=== PATIENT | female | born 2000 | race American Indian/Alaskan Native ===

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

== ENCOUNTER 2018-02-27 15:20 | Emergency (ER) | payer SELFPAY ==
[2018-02-27 16:33] LABS: Bilirubin,Urine NEG (Negative); Blood,Urine NEG (Negative); Color,Urine Yellow (Yellow); Mucus,Urine 2+ /HPF; Protein,Urine <15 mg/dL mg/dL (Negative)
[2018-02-27 16:37] LABS: HCG Qualitative,Urine Negative (Negative)
[2018-02-27] MEDS ORDERED: MOTRIN PO ONE (19:43)
--- NOTE | 2018-02-27 19:46 | Emergency Department Report ---
- General Chief Complaint: Upper Respiratory Infection Stated Complaint: HEADACHE,FEVER,WEAKNESS Time Seen by Provider: 02/27/18 19:40 Source: patient Mode of arrival: Ambulatory Limitations: No Limitations - History of Present Illness Initial Comments: 16-year-old Afro[place] female comes in complaining of sore throat and nausea 3 days. Patient admits to runny nose and nasal congestion and sneezing. Patient reports she is taking [id number] ibuprofen has not taken anything for pain. Patient has past medical history Asthma currently takes no medications on a daily basis and has no known drug allergies. She appears in record to have had asthma in last attack 2012. MD Complaint: sore throat, rhinorrhea, nasal congestion -: days(s) (3) Severity: mild - Related Data Home Medications Medication Instructions Recorded Confirmed Last Taken Ferrous Sulfate 1 tab PO DAILY 12/15/13 12/15/13 Unknown Previous Rx's Medication Instructions Recorded Last Taken Type Amoxicillin/K Clav Tab [Augmentin 1 tab PO BID #14 tablet 10/14/14 Unknown Rx 875MG] Ibuprofen [Motrin] 600 mg PO Q8H PRN #30 tablet 10/14/14 Unknown Rx traMADol [Ultram] 50 mg PO Q6HR PRN #14 tablet 10/14/14 Unknown Rx Amoxicillin 500 mg PO BID #20 capsule 07/14/17 Unknown Rx Omeprazole Magnesium [PriLOSEC Otc] 20 mg PO QDAY #14 tablet. 07/18/17 Unknown Rx traMADol [Ultram 50 MG tab] 50 mg PO Q6HR PRN #15 tablet 07/18/17 Unknown Rx Allergies Allergy/AdvReac Type Severity Reaction Status Date / Time No Known Allergies Allergy Verified 07/13/17 21:56 ED Review of Systems ROS: Stated complaint: HEADACHE,FEVER,WEAKNESS Other details as noted in HPI Comment: All other systems reviewed and negative Constitutional: denies: chills, fever ENT: throat pain, congestion, other (sneezing, rhinorrhea) Respiratory: denies: cough, shortness of breath, wheezing Cardiovascular: denies: chest pain, palpitations Endocrine: no symptoms reported Gastrointestinal: nausea Genitourinary: denies: urgency, dysuria, discharge Musculoskeletal: denies: back pain, joint swelling, arthralgia Skin: denies: rash, lesions Neurological: headache ED Past Medical Hx - Past Medical History Hx Hypertension: No Hx Congestive Heart Failure: No Hx Diabetes: No Hx Deep Vein Thrombosis: No Hx Renal Disease: No Hx Sickle Cell Disease: No Hx Seizures: No Hx Asthma: Yes (last attack- 2012) Hx COPD: No - Surgical History Past Surgical History?: Yes - Social History Smoking Status: Never Smoker Substance Use Type: None - Medications Home Medications: Home Medications Medication Instructions Recorded Confirmed Last Taken Type Ferrous Sulfate 1 tab PO DAILY 12/15/13 12/15/13 Unknown History Amoxicillin/K Clav Tab [Augmentin 1 tab PO BID #14 tablet 10/14/14 Unknown Rx 875MG] Ibuprofen [Motrin] 600 mg PO Q8H PRN #30 tablet 10/14/14 Unknown Rx traMADol [Ultram] 50 mg PO Q6HR PRN #14 tablet 10/14/14 Unknown Rx Amoxicillin 500 mg PO BID #20 capsule 07/14/17 Unknown Rx Omeprazole Magnesium [PriLOSEC Otc] 20 mg PO QDAY #14 tablet. 07/18/17 Unknown Rx traMADol [Ultram 50 MG tab] 50 mg PO Q6HR PRN #15 tablet 07/18/17 Unknown Rx ED Physical Exam - General Limitations: No Limitations General appearance: alert, in no apparent distress - Head Head exam: Present: atraumatic, normocephalic - Eye Eye exam: Present: EOMI - ENT ENT exam: Present: mucous membranes moist, TM's normal bilaterally - Expanded ENT Exam Expanded Throat exam: Negative: tonsillar erythema, tonsillomegaly, tonsillar exudate - Neck Neck exam: Present: full ROM. Absent: tenderness, lymphadenopathy - Respiratory Respiratory exam: Present: normal lung sounds bilaterally. Absent: respiratory distress - Cardiovascular Cardiovascular Exam: Present: regular rate, normal rhythm. Absent: systolic murmur, diastolic murmur, rubs, gallop ED Course Vital Signs 02/27/18 15:34 Temperature 98.7 F Pulse Rate 84 Respiratory 16 Rate Blood Pressure 107/60 O2 Sat by Pulse 100 Oximetry ED Medical Decision Making - Medical Decision Making Patient has been evaluated by this provider fast track. Ibuprofen 600 mg given for pain management Discussed the patient she can take Claritin, Zyrtec or Yovana for seasonal allergies, she can also take Flonase for nasal congestion discussed the patient all of this is [id number]. Discussed the patient she can take Tylenol or ibuprofen for pain. Given patient information to [facility]. Critical care attestation.: If time is entered above; I have spent that time in minutes in the direct care of this critically ill patient, excluding procedure time. ED Disposition Clinical Impression: Allergic rhinitis Qualifiers: Allergic rhinitis trigger: unspecified Allergic rhinitis seasonality: unspecified Qualified Code(s): J30.9 - Allergic rhinitis, unspecified Disposition: - TO HOME OR SELFCARE Is pt being admited?: No Does the pt Need Aspirin: No Condition: Stable Instructions: Allergic Rhinitis (ED) Additional Instructions: You can take either Zyrtec's, Claritin, or Yovana for her allergic rhinitis as well as Flonase nasal spray. They're all located in the cold and seasonal allergy area of the pharmacy. He can take Tylenol or Motrin for pain. Follow- up with [facility] if her symptoms persist or gets worse. Referrals: PRIMARY CARE, [Primary Care Provider] - 3-5 Days
[2018-02-27 20:22] VITALS: BP 110/60
== END 2018-02-27 20:44 | disposition home or self-care (01) ==
LOC: ED 15:20
DX: J30.9 Allergic rhinitis, unspecified (principal); J45.909 Unspecified asthma, uncomplicated; Z79.899 Other long term (current) drug therapy
CPT/HCPCS: 81001; 81025; 99283

== ENCOUNTER 2018-03-14 19:28 | Emergency (ER) | payer SELFPAY ==
[2018-03-14 19:38] VITALS: BP 115/44
[2018-03-14 21:02] LABS: Bilirubin,Urine NEG (Negative); Blood,Urine NEG (Negative); Color,Urine Yellow (Yellow); Mucus,Urine 1+ /HPF; WBC,Urine < 1.0 /HPF (0.0-6.0)
[2018-03-14 21:06] LABS: HCG Qualitative,Urine Negative (Negative)
--- NOTE | 2018-03-15 01:36 | Emergency Department Report ---
ED Chest Pain HPI - General Chief Complaint: Chest Pain Stated Complaint: COUGH; CONGESTION Time Seen by Provider: 03/15/18 01:20 Source: patient Mode of arrival: Ambulatory Limitations: No Limitations - History of Present Illness Initial Comments: Patient 17-year-old female with a history of asthma and bronchitis presents for cough chest pain with cough with nocturnal wheezing patient didn't denies fever n patient out of albuterol inhaler for past month MD Complaint: chest pain Onset/Timin -: days(s) Pain Location: right chest Pain Radiation: none Severity: mild Severity scale (0 -10): 2 Quality: sharp Consistency: intermittent Improves With: rest Worsens With: other (cough) Other Symptoms: cough Treatments Prior to Arrival: none - Related Data Home Medications Medication Instructions Recorded Confirmed Last Taken Ferrous Sulfate 1 tab PO DAILY 12/15/13 12/15/13 Unknown Previous Rx's Medication Instructions Recorded Last Taken Type Amoxicillin/K Clav Tab [Augmentin 1 tab PO BID #14 tablet 10/14/14 Unknown Rx 875MG] Ibuprofen [Motrin] 600 mg PO Q8H PRN #30 tablet 10/14/14 Unknown Rx traMADol [Ultram] 50 mg PO Q6HR PRN #14 tablet 10/14/14 Unknown Rx Amoxicillin 500 mg PO BID #20 capsule 07/14/17 Unknown Rx Omeprazole Magnesium [PriLOSEC Otc] 20 mg PO QDAY #14 tablet.dr 07/18/17 Unknown Rx traMADol [Ultram 50 MG tab] 50 mg PO Q6HR PRN #15 tablet 07/18/17 Unknown Rx ALBUTEROL Inhaler (OR & NICU) 2 puff IH QID PRN #1 inhalation 03/15/18 Unknown Rx [ProAir HFA Inhaler] Azithromycin 250 mg PO DAILY #6 tablet 03/15/18 Unknown Rx Benzonatate [Tessalon Perle] 100 mg PO TID PRN #30 capsule 03/15/18 Unknown Rx Ibuprofen 800 mg PO TID PRN #30 tablet 03/15/18 Unknown Rx predniSONE [Deltasone] 40 mg PO QDAY 5 Days #10 tab 03/15/18 Unknown Rx Allergies Allergy/AdvReac Type Severity Reaction Status Date / Time No Known Allergies Allergy Verified 07/13/17 21:56 Heart Score - HEART Score History: Slightly suspicious EKG: Normal Age: < 45 Risk factors: No known risk factors Troponin: < normal limit HEART Score: 0 ED Review of Systems ROS: Stated complaint: COUGH; CONGESTION Other details as noted in HPI Constitutional: denies: chills, fever Eyes: denies: eye pain, eye discharge, vision change ENT: throat pain, congestion Respiratory: cough, wheezing Cardiovascular: denies: chest pain, palpitations Endocrine: no symptoms reported Gastrointestinal: denies: abdominal pain, nausea, diarrhea Genitourinary: denies: urgency, dysuria, discharge Musculoskeletal: denies: back pain, joint swelling, arthralgia Skin: denies: rash, lesions Neurological: denies: headache, weakness, paresthesias Psychiatric: denies: anxiety, depression Hematological/Lymphatic: denies: easy bleeding, easy bruising ED Past Medical Hx - Past Medical History Hx Hypertension: No Hx Congestive Heart Failure: No Hx Diabetes: No Hx Deep Vein Thrombosis: No Hx Renal Disease: No Hx Sickle Cell Disease: No Hx Seizures: No Hx Asthma: Yes (last attack- 2012) Hx COPD: No - Surgical History Past Surgical History?: No - Social History Smoking Status: Never Smoker Substance Use Type: None - Medications Home Medications: Home Medications Medication Instructions Recorded Confirmed Last Taken Type Ferrous Sulfate 1 tab PO DAILY 12/15/13 12/15/13 Unknown History Amoxicillin/K Clav Tab [Augmentin 1 tab PO BID #14 tablet 10/14/14 Unknown Rx 875MG] Ibuprofen [Motrin] 600 mg PO Q8H PRN #30 tablet 10/14/14 Unknown Rx traMADol [Ultram] 50 mg PO Q6HR PRN #14 tablet 10/14/14 Unknown Rx Amoxicillin 500 mg PO BID #20 capsule 07/14/17 Unknown Rx Omeprazole Magnesium [PriLOSEC Otc] 20 mg PO QDAY #14 tablet. 07/18/17 Unknown Rx traMADol [Ultram 50 MG tab] 50 mg PO Q6HR PRN #15 tablet 07/18/17 Unknown Rx ALBUTEROL Inhaler (OR & NICU) 2 puff IH QID PRN #1 inhalation 03/15/18 Unknown Rx [ProAir HFA Inhaler] Azithromycin 250 mg PO DAILY #6 tablet 03/15/18 Unknown Rx Benzonatate [Tessalon Perle] 100 mg PO TID PRN #30 capsule 03/15/18 Unknown Rx Ibuprofen 800 mg PO TID PRN #30 tablet 03/15/18 Unknown Rx predniSONE [Deltasone] 40 mg PO QDAY 5 Days #10 tab 03/15/18 Unknown Rx ED Physical Exam - General Limitations: No Limitations General appearance: alert, in no apparent distress - Head Head exam: Present: atraumatic, normocephalic - Eye Eye exam: Present: normal appearance - Expanded ENT Exam Expanded Ear exam: Present: auricular hematoma Throat exam: Positive: tonsillar erythema. Negative: tonsillomegaly, tonsillar exudate, R peritonsillar mass, L peritonsillar mass - Neck Neck exam: Present: normal inspection. Absent: tenderness, full ROM, lymphadenopathy, thyromegaly - Respiratory Respiratory exam: Present: normal lung sounds bilaterally, chest wall tenderness (right lateral chest wall ). Absent: respiratory distress, wheezes, stridor - Cardiovascular Cardiovascular Exam: Present: regular rate, normal rhythm. Absent: systolic murmur, diastolic murmur, rubs, gallop - GI/Abdominal GI/Abdominal exam: Present: soft, normal bowel sounds - Rectal Rectal exam: Present: deferred - Extremities Exam Extremities exam: Present: normal inspection - Back Exam Back exam: Present: normal inspection - Neurological Exam Neurological exam: Present: alert, oriented X3 - Psychiatric Psychiatric exam: Present: normal affect, normal mood - Skin Skin exam: Present: warm, dry, intact, normal color. Absent: rash ED Course Vital Signs 03/14/18 03/14/18 19:37 19:59 Temperature 98.6 F 98.6 F Pulse Rate 90 84 Respiratory 18 16 Rate Blood Pressure 115/44 115/44 O2 Sat by Pulse 100 100 Oximetry AG score - Ag Score Age > 65: (0) No Aspirin use within the Past 7 Days: (0) No 3 or more CAD Risk Factors: (0) No 2 or more Angina events in past 24 hrs: (0) No Known CAD with more than 50% Stenosis: (0) No Elevated Cardiac Markers: (0) No ST Deviation Greater than 0.5mm: (0) No AG Score: 0 ED Medical Decision Making - Medical Decision Making pt refused xray ekg: nsr NSTEMI , Ent: tms clear, nose: boggy clear post nasal drip, pharynx: moderate erythema no exudate no lesions, mild bilat maxillary sinus pain, lungs clear bilat, plan: refill albuterol, prednisone, tessalone, ibuprofen, zpack , pt will followup with pcp in 2-3 days, pt verbalized agreement and understanding of same. Critical care attestation.: If time is entered above; I have spent that time in minutes in the direct care of this critically ill patient, excluding procedure time. ED Disposition Clinical Impression: Bronchitis URI (upper respiratory infection) Qualifiers: URI type: unspecified viral URI Qualified Code(s): J06.9 - Acute upper respiratory infection, unspecified Disposition: TO HOME OR SELFCARE Is pt being admited?: No Does the pt Need Aspirin: No Condition: Good Instructions: Chronic Bronchitis (ED) Prescriptions: ALBUTEROL Inhaler (OR & NICU) [ProAir HFA Inhaler] 2 puff IH QID PRN #1 inhalation PRN Reason: Shortness Of Breath Azithromycin 250 mg PO DAILY #6 tablet Benzonatate [Tessalon Perle] 100 mg PO TID PRN #30 capsule PRN Reason: Cough Ibuprofen 800 mg PO TID PRN #30 tablet PRN Reason: pain predniSONE [Deltasone] 40 mg PO QDAY 5 Days #10 tab Referrals: [facility] [Outside] - 3-5 Days Forms: Work/School Release Form(ED)
== END 2018-03-15 01:56 | disposition home or self-care (01) ==
LOC: ED 19:28
DX: J06.9 Acute upper respiratory infection, unspecified (principal); J40 Bronchitis, not specified as acute or chronic; J45.909 Unspecified asthma, uncomplicated
CPT/HCPCS: 81001; 81025; 93005; 93010; 99283

== ENCOUNTER 2018-10-29 21:41 | Emergency (ER) | payer SELFPAY ==
--- NOTE | 2018-10-29 22:08 | Emergency Department Report ---
Blank Doc - Documentation Documentation: 18 y old female presents to ed with 1 day of sore throat, cough, chest pain and light headedness pmh:none states bennett x 2 weeks labs,ua,upt,xray ACC Eval
[2018-10-29 22:12] VITALS: BP 110/76
[2018-10-29 22:42] LABS: Hematocrit 27.8 % (30.3-42.9); Hemoglobin 9.4 gm/dl (10.1-14.3); Mean Corpuscular HGB Conc 34 % (30-34); Mean Corpuscular Volume 75 fl (79-97); Platelet Count 296 K/mm3 (140-440); Red Blood Count 3.72 M/mm3 (3.65-5.03); Red Cell Distribution Width 16.2 % (13.2-15.2)
[2018-10-29 22:54] LABS: BUN/Creatinine Ratio 14; Blood Urea Nitrogen 7 mg/dL (7-17); Calcium 9.2 mg/dL (8.4-10.2); Hemolysis Index 4
[2018-10-29 23:16] LABS: Total Cells Counted 100
[2018-10-29 23:17] LABS: Ovalocytes 1+
[2018-10-29 23:22] LABS: Hypochromasia 2+; Platelet Estimate Consistent w Auto
--- NOTE | 2018-10-30 00:03 | XRay Report ---
PROCEDURE: XR CHEST ROUTINE 2V TECHNIQUE: PA and lateral chest radiographs were obtained. HISTORY: pain with cough COMPARISONS: July 17, 2017. FINDINGS: Heart: Normal. Mediastinum/Vessels: Normal. Lungs/Pleural space: Normal. Bony thorax: No acute osseous abnormality. IMPRESSION: There is no evidence of an acute cardiopulmonary process. This document is electronically signed by Nivia Ricardo DO., Oct 30 2018 12:00:47 AM ET
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
== END 2018-10-30 04:41 | disposition home or self-care (01) ==
LOC: ED 21:41
DX: K14.0 Glossitis (principal); J02.9 Acute pharyngitis, unspecified; D64.9 Anemia, unspecified
CPT/HCPCS: 36415; 71046; 80048; 84703; 85007; 85025; 87116; 87430

== ENCOUNTER 2018-11-09 04:57 | Emergency (ER) | payer SELFPAY ==
[2018-11-09 05:18] VITALS: BP 112/65
[2018-11-09 05:47] LABS: Bilirubin,Urine NEG (Negative); Blood,Urine NEG (Negative); Color,Urine Yellow (Yellow); Mucus,Urine 3+ /HPF; Protein,Urine <15 mg/dL mg/dL (Negative); Urobilinogen,Urine < 2.0 mg/dL (<2.0)
[2018-11-09 05:54] LABS: HCG Qualitative,Urine Negative (Negative)
[2018-11-09] MEDS ORDERED: XYLOCAINE 1% MPF 5 mL INFILTRATI ONE (05:56)
[2018-11-09] MEDS ORDERED: ZITHROMAX PO ONE (05:56)
[2018-11-09] MEDS ORDERED: ROCEPHIN IM ONE (05:56)
--- NOTE | 2018-11-09 06:25 | Emergency Department Report ---
ED General Adult HPI - General Chief complaint: Urogenital-Female Stated complaint: STD CHECK Time Seen by Provider: 11/09/18 05:40 Source: patient Mode of arrival: Ambulatory Limitations: No Limitations - History of Present Illness Initial comments: Patient is a A0 18 hours old, female who presents to the ED with complaint of persistent malodorous greenish brown vaginal discharge for the last 3 days after having unprotected sexual intercourse. Patient states that she would like to be treated for sexually transmitted diseases because she suspects he may have an infected. Patient denies dizziness, fever, chills, nausea, vomiting, dysuria, urinary frequency and urgency, low back pain or abdominal pain and vaginal bleeding. MD Complaint: vaginal discharge -: Sudden, days(s) (3) Location: genitals Radiation: non-radiation Severity scale (0 -10): 1 Quality: burning, aching, dull Consistency: constant Improves with: none Worsens with: none Associated Symptoms: denies other symptoms. denies: confusion, chest pain, cough, diaphoresis, headaches, loss of appetite Treatments Prior to Arrival: none - Related Data Home Medications Medication Instructions Recorded Confirmed Last Taken Ferrous Sulfate 1 tab PO DAILY 12/15/13 12/15/13 Unknown Previous Rx's Medication Instructions Recorded Last Taken Type Amoxicillin/K Clav Tab [Augmentin 1 tab PO BID #14 tablet 10/14/14 Unknown Rx 875MG] Ibuprofen [Motrin] 600 mg PO Q8H PRN #30 tablet 10/14/14 Unknown Rx traMADol [Ultram] 50 mg PO Q6HR PRN #14 tablet 10/14/14 Unknown Rx Amoxicillin 500 mg PO BID #20 capsule 07/14/17 Unknown Rx Omeprazole Magnesium [PriLOSEC Otc] 20 mg PO QDAY #14 tablet. 07/18/17 Unknown Rx traMADol [Ultram 50 MG tab] 50 mg PO Q6HR PRN #15 tablet 07/18/17 Unknown Rx ALBUTEROL Inhaler (OR & NICU) 2 puff IH QID PRN #1 inhalation 03/15/18 Unknown Rx [ProAir HFA Inhaler] Azithromycin 250 mg PO DAILY #6 tablet 03/15/18 Unknown Rx Benzonatate [Tessalon Perle] 100 mg PO TID PRN #30 capsule 03/15/18 Unknown Rx Ibuprofen [Ibuprofen 800] 800 mg PO TID PRN #30 tablet 03/15/18 Unknown Rx predniSONE [Deltasone] 40 mg PO QDAY 5 Days #10 tab 03/15/18 Unknown Rx Chlorhexidine Mouthwash [Peridex] 15 ml MM BID #473 bottle 10/30/18 Unknown Rx Fluconazole [Diflucan TAB] 150 mg PO ONCE #1 tablet 11/09/18 Unknown Rx metroNIDAZOLE [Flagyl] 500 mg PO Q12HR #20 tab 11/09/18 Unknown Rx Allergies Allergy/AdvReac Type Severity Reaction Status Date / Time No Known Allergies Allergy Verified 07/13/17 21:56 ED Review of Systems ROS: Stated complaint: STD CHECK Other details as noted in HPI Comment: All other systems reviewed and negative Constitutional: no symptoms reported, see HPI. denies: diaphoresis, malaise Eyes: as per HPI. denies: eye pain, eye discharge ENT: as per HPI. denies: ear pain, throat pain, dental pain, hearing loss, epistaxis Respiratory: no symptoms reported, see HPI. denies: cough, orthopnea, shortness of breath, SOB with exertion, SOB at rest Cardiovascular: as per HPI. denies: chest pain, palpitations, dyspnea on exertion, orthopnea, edema, syncope, paroxysmal nocturnal dyspnea Endocrine: no symptoms reported, see HPI. denies: excessive sweating, flushing, increased hunger, increased thirst, increased urine Gastrointestinal: as per HPI. denies: abdominal pain, nausea, vomiting, diarrhea, constipation Genitourinary: as per HPI, discharge. denies: urgency, dysuria, frequency, abnormal menses, dyspareunia Musculoskeletal: as per HPI. denies: back pain, joint swelling, arthralgia Skin: as per HPI. denies: rash, lesions, change in color, change in hair/nails Neurological: as per HPI. denies: numbness, confusion Psychiatric: as per HPI Hematological/Lymphatic: as per HPI ED Past Medical Hx - Past Medical History Previous Medical History?: Yes Hx Hypertension: No Hx Congestive Heart Failure: No Hx Diabetes: No Hx Deep Vein Thrombosis: No Hx Renal Disease: No Hx Sickle Cell Disease: No Hx Seizures: No Hx Asthma: Yes (last attack- 2012) Hx COPD: No Additional medical history: Irregular heart rate as a child - Surgical History Past Surgical History?: Yes Additional Surgical History: "heart sx at 4/5 yrs old" - Social History Smoking Status: Never Smoker - Medications Home Medications: Home Medications Medication Instructions Recorded Confirmed Last Taken Type Ferrous Sulfate 1 tab PO DAILY 12/15/13 12/15/13 Unknown History Amoxicillin/K Clav Tab [Augmentin 1 tab PO BID #14 tablet 10/14/14 Unknown Rx 875MG] Ibuprofen [Motrin] 600 mg PO Q8H PRN #30 tablet 10/14/14 Unknown Rx traMADol [Ultram] 50 mg PO Q6HR PRN #14 tablet 10/14/14 Unknown Rx Amoxicillin 500 mg PO BID #20 capsule 07/14/17 Unknown Rx Omeprazole Magnesium [PriLOSEC Otc] 20 mg PO QDAY #14 tablet.dr 07/18/17 Unknown Rx traMADol [Ultram 50 MG tab] 50 mg PO Q6HR PRN #15 tablet 07/18/17 Unknown Rx ALBUTEROL Inhaler (OR & NICU) 2 puff IH QID PRN #1 inhalation 03/15/18 Unknown Rx [ProAir HFA Inhaler] Azithromycin 250 mg PO DAILY #6 tablet 03/15/18 Unknown Rx Benzonatate [Tessalon Perle] 100 mg PO TID PRN #30 capsule 03/15/18 Unknown Rx Ibuprofen [Ibuprofen 800] 800 mg PO TID PRN #30 tablet 03/15/18 Unknown Rx predniSONE [Deltasone] 40 mg PO QDAY 5 Days #10 tab 03/15/18 Unknown Rx Chlorhexidine Mouthwash [Peridex] 15 ml MM BID #473 bottle 10/30/18 Unknown Rx Fluconazole [Diflucan TAB] 150 mg PO ONCE #1 tablet 11/09/18 Unknown Rx metroNIDAZOLE [Flagyl] 500 mg PO Q12HR #20 tab 11/09/18 Unknown Rx ED Physical Exam - General Limitations: No Limitations General appearance: alert, in no apparent distress - Head Head exam: Present: atraumatic, normocephalic, normal inspection - Eye Eye exam: Present: normal appearance, PERRL, EOMI Pupils: Present: normal accommodation - ENT ENT exam: Present: normal exam, normal orophraynx, mucous membranes moist, TM's normal bilaterally, normal external ear exam - Neck Neck exam: Present: normal inspection - Respiratory Respiratory exam: Present: normal lung sounds bilaterally. Absent: respiratory distress, wheezes, chest wall tenderness, accessory muscle use, decreased breath sounds - Cardiovascular Cardiovascular Exam: Present: regular rate, normal rhythm, normal heart sounds - GI/Abdominal GI/Abdominal exam: Present: soft, normal bowel sounds. Absent: tenderness, gua rding, hyperactive bowel sounds, hypoactive bowel sounds - Rectal Rectal exam: Present: deferred - External exam: Present: other (patient declined pelvic exam) - Extremities Exam Extremities exam: Present: normal inspection, full ROM, normal capillary refill - Back Exam Back exam: Present: normal inspection. Absent: CVA tenderness (R), CVA tenderness (L), muscle spasm, vertebral tenderness - Neurological Exam Neurological exam: Present: alert, oriented X3, CN II-XII intact, normal gait, reflexes normal - Psychiatric Psychiatric exam: Present: normal affect - Skin Skin exam: Present: warm, dry, intact, normal color ED Course Vital Signs 11/09/18 11/09/18 05:15 05:24 Temperature 97.9 F 97.9 F Pulse Rate 77 69 Respiratory 18 18 Rate Blood Pressure 112/65 112/65 O2 Sat by Pulse 99 100 Oximetry - Reevaluation(s) Reevaluation #1: 11/09/18 06:25 Patient is hemodynamically stable. Urinalysis was ordered to include gonorrhea and chlamydia tests. Patient treated empirically for gonorrhea and Chlamydia in the ED and discharged home on Flagyl for bacterial vaginosis. Patient advised to follow-up at the health department for further evaluation and tests. ED Medical Decision Making - Medical Decision Making Patient is hemodynamically stable. Urinalysis was ordered to include gonorrhea and chlamydia tests. Patient treated empirically for gonorrhea and Chlamydia in the ED and discharged home on Flagyl for bacterial vaginosis. Patient advised to follow-up at the health department for further evaluation and tests. - Differential Diagnosis STD, Bacterial vaginosis, Trichomonas, GC/CHlamydia Critical care attestation.: If time is entered above; I have spent that time in minutes in the direct care of this critically ill patient, excluding procedure time. ED Disposition Clinical Impression: STD (sexually transmitted disease), Bacterial vaginosis Disposition: TO HOME OR SELFCARE Is pt being admited?: No Does the pt Need Aspirin: No Condition: Stable Instructions: Bacterial Vaginosis (ED), Sexually Transmitted Diseases (ED), Safe Sex (ED), Trichomoniasis (ED) Additional Instructions: Follow-up at [facility] for further evaluation and tests. Return to the ED immediately if symptoms get worse. Prescriptions: Fluconazole [Diflucan TAB] 150 mg PO ONCE #1 tablet metroNIDAZOLE [Flagyl] 500 mg PO Q12HR #20 tab Referrals: DEE MONREAL MD [Primary Care Provider] - 3-5 Days Forms: STI Treatment and Prevention Time of Disposition: 06:29 Print Language: THAI
[2018-11-09] MEDS ORDERED: ZOFRAN ODT PO ONE (06:54)
[2018-11-09] MEDS ORDERED: ZOFRAN ODT ONE (06:57)
== END 2018-11-09 07:12 | disposition home or self-care (01) ==
LOC: ED 04:57
DX: A64 Unspecified sexually transmitted disease (principal); N76.0 Acute vaginitis; B96.89 Other specified bacterial agents as the cause of diseases classified elsewhere; J45.909 Unspecified asthma, uncomplicated
CPT/HCPCS: 81001; 81025; 87591; 96372; 99283; J0696; Q0162

== ENCOUNTER 2018-12-23 19:37 | Emergency (ER) | payer SELFPAY ==
[2018-12-23] MEDS ORDERED: BOOSTRIX IM ONE (20:21)
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
[2018-12-23 20:23] VITALS: BP 117/67
== END 2018-12-23 20:35 | disposition home or self-care (01) ==
LOC: ED 19:37
DX: S61.452A Open bite of left hand, initial encounter (principal); W50.3XXA Accidental bite by another person, initial encounter; Y93.89 Activity, other specified; Y92.89 Other specified places as the place of occurrence of the external cause; Y99.8 Other external cause status
CPT/HCPCS: 90471; 90715

== ENCOUNTER 2019-03-05 16:58 | Emergency (ER) | payer SELFPAY ==
[2019-03-05 17:18] VITALS: BP 101/45
--- NOTE | 2019-03-05 17:18 | Event Note ---
ED Screening Note Date of service: 03/05/19 Time: 17:15 ED Screening Note: This is a 18 y.o. F. that presents to the ER with pelvic pain and vaginal discharge for 3 weeks. LMP 01/26/2019 A0 This initial assessment/diagnostic orders/clinical plan/treatment(s) is/are subject to change based on patients health status, clinical progression and re- assessment by fellow clinical providers in the ED. Further treatment and workup at subsequent clinical providers discretion. Patient/guardian urged not to elope from the ED as their condition may be serious if not clinically assessed and managed. Initial orders include: Pelvic exam
[2019-03-05 17:43] LABS: HCG Qualitative,Urine Negative (Negative)
--- NOTE | 2019-03-05 17:46 | Emergency Department Report ---
ED Female HPI - General Chief complaint: Urogenital-Female Stated complaint: ABD PAIN/PELVIC PAIN Time Seen by Provider: 03/05/19 17:14 Source: patient Mode of arrival: Ambulatory Limitations: No Limitations - History of Present Illness Initial comments: Patient is a 18-year-old female who presents to emergency room with complaints of pelvic pain that began a week ago. She has associated vaginal itching, white/green vaginal discharge, lesions on the vagina. She denies any nausea, vomiting, diarrhea, fever, dysuria, abdominal pain. She states that she was sexually active a month ago and did not use protection. The patient states that she perform douching a week ago which she states felt like it made her symptoms worse. She states her last menstrual cycle was January 29. - Related Data Home Medications Medication Instructions Recorded Confirmed Last Taken Ferrous Sulfate 1 tab PO DAILY 12/15/13 12/15/13 Unknown Previous Rx's Medication Instructions Recorded Last Taken Type Amoxicillin/K Clav Tab [Augmentin 1 tab PO BID #14 tablet 10/14/14 Unknown Rx 875MG] Ibuprofen [Motrin] 600 mg PO Q8H PRN #30 tablet 10/14/14 Unknown Rx traMADol [Ultram] 50 mg PO Q6HR PRN #14 tablet 10/14/14 Unknown Rx Amoxicillin 500 mg PO BID #20 capsule 07/14/17 Unknown Rx Omeprazole Magnesium [PriLOSEC Otc] 20 mg PO QDAY #14 tablet.dr 07/18/17 Unknown Rx traMADol [Ultram 50 MG tab] 50 mg PO Q6HR PRN #15 tablet 07/18/17 Unknown Rx ALBUTEROL Inhaler (OR & NICU) 2 puff IH QID PRN #1 inhalation 03/15/18 Unknown Rx [ProAir HFA Inhaler] Azithromycin 250 mg PO DAILY #6 tablet 03/15/18 Unknown Rx Benzonatate [Tessalon Perle] 100 mg PO TID PRN #30 capsule 03/15/18 Unknown Rx Ibuprofen [Ibuprofen 800] 800 mg PO TID PRN #30 tablet 03/15/18 Unknown Rx predniSONE [Deltasone] 40 mg PO QDAY 5 Days #10 tab 03/15/18 Unknown Rx Chlorhexidine Mouthwash [Peridex] 15 ml MM BID #473 bottle 10/30/18 Unknown Rx Fluconazole [Diflucan TAB] 150 mg PO ONCE #1 tablet 11/09/18 Unknown Rx metroNIDAZOLE [Flagyl] 500 mg PO Q12HR #20 tab 11/09/18 Unknown Rx Amoxicillin [Trimox CAP] 500 mg PO BID #20 capsule 12/23/18 Unknown Rx metroNIDAZOLE [Flagyl] 500 mg PO BID 7 Days #14 tab 03/05/19 Unknown Rx Allergies Allergy/AdvReac Type Severity Reaction Status Date / Time No Known Allergies Allergy Verified 07/13/17 21:56 ED Review of Systems ROS: Stated complaint: ABD PAIN/PELVIC PAIN Other details as noted in HPI Comment: All other systems reviewed and negative ED Past Medical Hx - Past Medical History Previous Medical History?: Yes Hx Hypertension: No Hx Congestive Heart Failure: No Hx Diabetes: No Hx Deep Vein Thrombosis: No Hx Renal Disease: No Hx Sickle Cell Disease: No Hx Seizures: No Hx Asthma: Yes (last attack- 2012) Hx COPD: No Additional medical history: Irregular heart rate as a child - Surgical History Past Surgical History?: Yes Additional Surgical History: "heart sx at 4/5 yrs old" - Social History Smoking Status: Never Smoker Substance Use Type: None - Medications Home Medications: Home Medications Medication Instructions Recorded Confirmed Last Taken Type Ferrous Sulfate 1 tab PO DAILY 12/15/13 12/15/13 Unknown History Amoxicillin/K Clav Tab [Augmentin 1 tab PO BID #14 tablet 10/14/14 Unknown Rx 875MG] Ibuprofen [Motrin] 600 mg PO Q8H PRN #30 tablet 10/14/14 Unknown Rx traMADol [Ultram] 50 mg PO Q6HR PRN #14 tablet 10/14/14 Unknown Rx Amoxicillin 500 mg PO BID #20 capsule 07/14/17 Unknown Rx Omeprazole Magnesium [PriLOSEC Otc] 20 mg PO QDAY #14 tablet. 07/18/17 Unknown Rx traMADol [Ultram 50 MG tab] 50 mg PO Q6HR PRN #15 tablet 07/18/17 Unknown Rx ALBUTEROL Inhaler (OR & NICU) 2 puff IH QID PRN #1 inhalation 03/15/18 Unknown Rx [ProAir HFA Inhaler] Azithromycin 250 mg PO DAILY #6 tablet 03/15/18 Unknown Rx Benzonatate [Tessalon Perle] 100 mg PO TID PRN #30 capsule 03/15/18 Unknown Rx Ibuprofen [Ibuprofen 800] 800 mg PO TID PRN #30 tablet 03/15/18 Unknown Rx predniSONE [Deltasone] 40 mg PO QDAY 5 Days #10 tab 03/15/18 Unknown Rx Chlorhexidine Mouthwash [Peridex] 15 ml MM BID #473 bottle 10/30/18 Unknown Rx Fluconazole [Diflucan TAB] 150 mg PO ONCE #1 tablet 11/09/18 Unknown Rx metroNIDAZOLE [Flagyl] 500 mg PO Q12HR #20 tab 11/09/18 Unknown Rx Amoxicillin [Trimox CAP] 500 mg PO BID #20 capsule 12/23/18 Unknown Rx metroNIDAZOLE [Flagyl] 500 mg PO BID 7 Days #14 tab 03/05/19 Unknown Rx ED Physical Exam - General Limitations: No Limitations General appearance: alert, in no apparent distress - Head Head exam: Present: atraumatic, normocephalic - Eye Eye exam: Present: normal appearance - ENT ENT exam: Present: mucous membranes moist - Respiratory Respiratory exam: Present: normal lung sounds bilaterally. Absent: respiratory distress, wheezes, rales, rhonchi, stridor, chest wall tenderness, accessory muscle use, decreased breath sounds, prolonged expiratory - Cardiovascular Cardiovascular Exam: Present: regular rate, normal rhythm, normal heart sounds. Absent: systolic murmur, diastolic murmur, rubs, gallop - GI/Abdominal GI/Abdominal exam: Present: soft, normal bowel sounds. Absent: distended, tenderness, guarding, rebound, rigid - External exam: Present: normal external exam, other (no visualized lesions or blisters). Absent: erythema, swelling, lesions, lacerations, ecchymosis, bleeding Speculum exam: Present: vaginal discharge (clear/white), cervical discharge (clear/white), other (shrimp trawler: reid rivas RN). Absent: erythema, vaginal bleeding, foreign body, tissue, laceration Bi-manual exam: Present: normal bi-manual exam. Absent: cervical motion tendernes, adnexal tenderness, adnexal mass - Neurological Exam Neurological exam: Present: alert, oriented X3 - Psychiatric Psychiatric exam: Present: normal affect, normal mood - Skin Skin exam: Present: warm, dry, intact ED Course Vital Signs 03/05/19 17:15 Temperature 98.3 F Pulse Rate 78 Respiratory 18 Rate Blood Pressure 101/45 [Left] O2 Sat by Pulse 100 Oximetry ED Medical Decision Making - Lab Data Lab Results 03/05/19 Range/Units 17:36 Urine Color Yellow (Yellow) Urine Turbidity Slightly-cloudy (Clear) Urine pH 7.0 (5.0-7.0) Ur Specific [place] 1.025 (1.003-1.030) Urine Protein <15 mg/dl (Negative) mg/dL Urine Glucose (UA) Neg (Negative) mg/dL Urine Ketones Neg (Negative) mg/dL Urine Blood Neg (Negative) Urine Nitrite Neg (Negative) Ur Reducing Substances Not Reportable Urine Bilirubin Neg (Negative) Urine Ictotest Not Reportable Urine Urobilinogen < 2.0 (<2.0) mg/dL Ur Leukocyte Esterase Lg (Negative) Urine WBC (Auto) 2.0 (0.0-6.0) /HPF Urine RBC (Auto) 3.0 (0.0-6.0) /HPF U Epithel Cells (Auto) 5.0 (0-13.0) /HPF Urine Bacteria (Auto) 1+ (Negative) /HPF Urine Mucus Few /HPF Urine HCG, Qual Negative (Negative) - Medical Decision Making Patient is a 18-year-old female who presents to emergency room with complaints of pelvic pain that began a week ago. She has associated vaginal itching, white/green vaginal discharge, lesions on the vagina. She denies any nausea, vomiting, diarrhea, fever, dysuria, abdominal pain. She states that she was sexually active a month ago and did not use protection. The patient states that she perform douching a week ago which she states felt like it made her symptoms worse. She states her last menstrual cycle was January 29. on exam: clear/white vaginal discharge, no CMT, no adnexal tenderness or masses, no abd TTP. pt is afebrile, no signs of PID on exam. urine preg is negative. UA without evidence of UTI. Wet prep shows polymorphonuclear cells and evidence of BV. Lesion prophylactically treated for gonorrhea and chlamydia. Gonorrhea chlamydia swab sent. Patient given prescription for Flagyl for BV. discussed with pt to please take medication as prescribed. do not drink alcohol while taking medication. Advised patient to please go to medical records in one week for results of tests. Please have partner tested and treated as well. Please be seen by the health department or an LOOP TACKER for further STD testing. Return to the emergency room for any new or worsening symptoms. - Differential Diagnosis STD, BV, yeast, vaginitis, PID Critical care attestation.: If time is entered above; I have spent that time in minutes in the direct care of this critically ill patient, excluding procedure time. ED Disposition Clinical Impression: Bacterial vaginosis, Vaginal discharge, Vaginal irritation Disposition: TO HOME OR SELFCARE Is pt being admited?: No Does the pt Need Aspirin: No Condition: Stable Instructions: Bacterial Vaginosis (ED), Sexually Transmitted Diseases (ED), Safe Sex (ED) Additional Instructions: please take medication as prescribed. do not drink alcohol while taking medication. Advised patient to please go to medical records in one week for results of tests. Please have partner tested and treated as well. Please be seen by the health department or an LOOP TACKER for further STD testing. Return to the emergency room for any new or worsening symptoms. Prescriptions: metroNIDAZOLE [Flagyl] 500 mg PO BID 7 Days #14 tab Referrals: [facility] [Outside] - 2-3 Days LISA SUH MD [Staff Physician] - 2-3 Days [facility] [Provider Group] - 2-3 Days Forms: STI Treatment and Prevention Time of Disposition: 19:21 Print Language: TURKISH
[2019-03-05 17:47] LABS: Bacteria,Urine 1+ /HPF (Negative); Bilirubin,Urine NEG (Negative); Blood,Urine NEG (Negative); Color,Urine Yellow (Yellow); Mucus,Urine FEW /HPF; Protein,Urine <15 mg/dL mg/dL (Negative); Urobilinogen,Urine < 2.0 mg/dL (<2.0)
[2019-03-05] MEDS ORDERED: LIDOCAINE-MPF (1%) 10 MG/1 ML VIAL 5 ML INFILTRATI ONE (19:16)
[2019-03-05] MEDS ORDERED: AZITHROMYCIN 1 GM ORAL PWDR PACKET PO ONE (19:16)
== END 2019-03-05 19:35 | disposition home or self-care (01) ==
LOC: ED 16:58
DX: N76.0 Acute vaginitis (principal); B96.89 Other specified bacterial agents as the cause of diseases classified elsewhere; J45.909 Unspecified asthma, uncomplicated; Z79.899 Other long term (current) drug therapy
CPT/HCPCS: 81001; 81025; 87210; 87591; 96372; 99284; J0696

== ENCOUNTER 2019-10-24 20:22 | Emergency (ER) | payer MEDICAID ==
[2019-10-24] MEDS ORDERED: ACETAMINOPHEN W/CODEINE 300-30 MG TAB PO ONE (21:06)
[2019-10-24] MEDS ORDERED: AMOXICILLIN 500 MG CAP PO ONE (21:06)
--- NOTE | 2019-10-24 21:28 | Emergency Department Report ---
ED ENT HPI - General Chief complaint: Dental/Oral Stated complaint: TOOTHACHE,HEADACHE Time Seen by Provider: 10/24/19 20:46 Source: patient Mode of arrival: Ambulatory Limitations: No Limitations - History of Present Illness Initial comments: The patient is a 19-year-old female who presents to ED complaining of pain in the right side of his mouth x 3 days. Patient states the pain is alleviated initially with pain medication but comes back. Patient states that it radiates towards ear. Patient describes a as a throbbing, pressure-like sensation. Patient states otherwise well and has no other complaints. Patient has had no fevers and no chills. No chest pain, no shortness of breath. No abdominal pain. No shortness of breath or recent trauma to the face. MD complaint: tooth pain - Related Data Home Medications Medication Instructions Recorded Confirmed Last Taken Ferrous Sulfate 1 tab PO DAILY 12/15/13 12/15/13 Unknown Previous Rx's Medication Instructions Recorded Last Taken Type Amoxicillin/K Clav Tab [Augmentin 1 tab PO BID #14 tablet 10/14/14 Unknown Rx 875MG] Ibuprofen [Motrin] 600 mg PO Q8H PRN #30 tablet 10/14/14 Unknown Rx traMADoL [Ultram] 50 mg PO Q6HR PRN #14 tablet 10/14/14 Unknown Rx Amoxicillin 500 mg PO BID #20 capsule 07/14/17 Unknown Rx Omeprazole Magnesium [PriLOSEC Otc] 20 mg PO QDAY #14 tablet. 07/18/17 Unknown Rx traMADoL [Ultram 50 MG tab] 50 mg PO Q6HR PRN #15 tablet 07/18/17 Unknown Rx Albuterol INH(or & Nicu Only) 2 puff IH QID PRN #1 inhalation 03/15/18 Unknown Rx [ProAir HFA Inhaler] Azithromycin 250 mg PO DAILY #6 tablet 03/15/18 Unknown Rx Benzonatate [Tessalon Perle] 100 mg PO TID PRN #30 capsule 03/15/18 Unknown Rx Ibuprofen [Ibuprofen 800] 800 mg PO TID PRN #30 tablet 03/15/18 Unknown Rx predniSONE [Deltasone] 40 mg PO QDAY 5 Days #10 tab 03/15/18 Unknown Rx Chlorhexidine Mouthwash [Peridex] 15 ml MM BID #473 bottle 10/30/18 Unknown Rx Fluconazole (Nf) [Diflucan TAB] 150 mg PO ONCE #1 tablet 11/09/18 Unknown Rx metroNIDAZOLE [Flagyl] 500 mg PO Q12HR #20 tab 11/09/18 Unknown Rx metroNIDAZOLE [Flagyl] 500 mg PO BID 7 Days #14 tab 03/05/19 Unknown Rx Amoxicillin [Trimox CAP] 500 mg PO BID #20 capsule 10/24/19 Unknown Rx Ibuprofen [Motrin] 800 mg PO Q8HR #30 tablet 10/24/19 Unknown Rx Allergies Allergy/AdvReac Type Severity Reaction Status Date / Time No Known Allergies Allergy Verified 07/13/17 21:56 ED Dental HPI - General Chief complaint: Dental/Oral Stated complaint: TOOTHACHE,HEADACHE Time Seen by Provider: 10/24/19 20:46 Source: patient Mode of arrival: Ambulatory Limitations: No Limitations - Related Data Home Medications Medication Instructions Recorded Confirmed Last Taken Ferrous Sulfate 1 tab PO DAILY 12/15/13 12/15/13 Unknown Previous Rx's Medication Instructions Recorded Last Taken Type Amoxicillin/K Clav Tab [Augmentin 1 tab PO BID #14 tablet 10/14/14 Unknown Rx 875MG] Ibuprofen [Motrin] 600 mg PO Q8H PRN #30 tablet 10/14/14 Unknown Rx traMADoL [Ultram] 50 mg PO Q6HR PRN #14 tablet 10/14/14 Unknown Rx Amoxicillin 500 mg PO BID #20 capsule 07/14/17 Unknown Rx Omeprazole Magnesium [PriLOSEC Otc] 20 mg PO QDAY #14 tablet. 07/18/17 Unknown Rx traMADoL [Ultram 50 MG tab] 50 mg PO Q6HR PRN #15 tablet 07/18/17 Unknown Rx Albuterol INH(or & Nicu Only) 2 puff IH QID PRN #1 inhalation 03/15/18 Unknown Rx [ProAir HFA Inhaler] Azithromycin 250 mg PO DAILY #6 tablet 03/15/18 Unknown Rx Benzonatate [Tessalon Perle] 100 mg PO TID PRN #30 capsule 03/15/18 Unknown Rx Ibuprofen [Ibuprofen 800] 800 mg PO TID PRN #30 tablet 03/15/18 Unknown Rx predniSONE [Deltasone] 40 mg PO QDAY 5 Days #10 tab 03/15/18 Unknown Rx Chlorhexidine Mouthwash [Peridex] 15 ml MM BID #473 bottle 10/30/18 Unknown Rx Fluconazole (Nf) [Diflucan TAB] 150 mg PO ONCE #1 tablet 11/09/18 Unknown Rx metroNIDAZOLE [Flagyl] 500 mg PO Q12HR #20 tab 11/09/18 Unknown Rx metroNIDAZOLE [Flagyl] 500 mg PO BID 7 Days #14 tab 03/05/19 Unknown Rx Amoxicillin [Trimox CAP] 500 mg PO BID #20 capsule 10/24/19 Unknown Rx Ibuprofen [Motrin] 800 mg PO Q8HR #30 tablet 10/24/19 Unknown Rx Allergies Allergy/AdvReac Type Severity Reaction Status Date / Time No Known Allergies Allergy Verified 07/13/17 21:56 ED Review of Systems ROS: Stated complaint: TOOTHACHE,HEADACHE Other details as noted in HPI Comment: All other systems reviewed and negative ED Past Medical Hx - Past Medical History Previous Medical History?: Yes Hx Hypertension: No Hx Congestive Heart Failure: No Hx Diabetes: No Hx Deep Vein Thrombosis: No Hx Renal Disease: No Hx Sickle Cell Disease: No Hx Seizures: No Hx Asthma: Yes (last attack- 2012) Hx COPD: No Additional medical history: Irregular heart rate as a child - Surgical History Past Surgical History?: Yes Additional Surgical History: "heart sx at 4/5 yrs old" - Social History Smoking Status: Never Smoker Substance Use Type: None - Medications Home Medications: Home Medications Medication Instructions Recorded Confirmed Last Taken Type Ferrous Sulfate 1 tab PO DAILY 12/15/13 12/15/13 Unknown History Amoxicillin/K Clav Tab [Augmentin 1 tab PO BID #14 tablet 10/14/14 Unknown Rx 875MG] Ibuprofen [Motrin] 600 mg PO Q8H PRN #30 tablet 10/14/14 Unknown Rx traMADoL [Ultram] 50 mg PO Q6HR PRN #14 tablet 10/14/14 Unknown Rx Amoxicillin 500 mg PO BID #20 capsule 07/14/17 Unknown Rx Omeprazole Magnesium [PriLOSEC Otc] 20 mg PO QDAY #14 tablet. 07/18/17 Unknown Rx traMADoL [Ultram 50 MG tab] 50 mg PO Q6HR PRN #15 tablet 07/18/17 Unknown Rx Albuterol INH(or & Nicu Only) 2 puff IH QID PRN #1 inhalation 03/15/18 Unknown Rx [ProAir HFA Inhaler] Azithromycin 250 mg PO DAILY #6 tablet 03/15/18 Unknown Rx Benzonatate [Tessalon Perle] 100 mg PO TID PRN #30 capsule 03/15/18 Unknown Rx Ibuprofen [Ibuprofen 800] 800 mg PO TID PRN #30 tablet 03/15/18 Unknown Rx predniSONE [Deltasone] 40 mg PO QDAY 5 Days #10 tab 03/15/18 Unknown Rx Chlorhexidine Mouthwash [Peridex] 15 ml MM BID #473 bottle 10/30/18 Unknown Rx Fluconazole (Nf) [Diflucan TAB] 150 mg PO ONCE #1 tablet 11/09/18 Unknown Rx metroNIDAZOLE [Flagyl] 500 mg PO Q12HR #20 tab 11/09/18 Unknown Rx metroNIDAZOLE [Flagyl] 500 mg PO BID 7 Days #14 tab 03/05/19 Unknown Rx Amoxicillin [Trimox CAP] 500 mg PO BID #20 capsule 10/24/19 Unknown Rx Ibuprofen [Motrin] 800 mg PO Q8HR #30 tablet 10/24/19 Unknown Rx ED Physical Exam - General Limitations: No Limitations General appearance: alert, in no apparent distress - Head Head exam: Present: atraumatic, normocephalic - Eye Eye exam: Present: normal appearance - ENT ENT exam: Present: mucous membranes moist - Expanded ENT Exam Expanded Mouth exam: Present: normal external inspection Teeth exam: Present: dental caries, dental tenderness # Throat exam: Positive: normal inspection - Neck Neck exam: Present: normal inspection, full ROM. Absent: tenderness, meningismus - Respiratory Respiratory exam: Present: normal lung sounds bilaterally. Absent: respiratory distress - Cardiovascular Cardiovascular Exam: Present: regular rate, normal rhythm. Absent: systolic murmur, diastolic murmur, rubs, gallop - GI/Abdominal GI/Abdominal exam: Present: soft, normal bowel sounds - Extremities Exam Extremities exam: Present: normal inspection - Back Exam Back exam: Present: normal inspection - Neurological Exam Neurological exam: Present: alert, oriented X3 - Psychiatric Psychiatric exam: Present: normal affect, normal mood - Skin Skin exam: Present: warm, dry, intact, normal color. Absent: rash ED Course Vital Signs 10/24/19 10/24/19 20:27 22:23 Temperature 99.0 F 98.8 F Pulse Rate 82 80 Respiratory 14 16 Rate Blood Pressure 117/79 Blood Pressure 118/78 [Left] O2 Sat by Pulse 100 98 Oximetry ED Medical Decision Making - Medical Decision Making 19-year-old female who presents with left-sided Facial pain secondary to odontogenic caries ED course: Odontogenic infection versus ear infection. Based upon history and physical examination, pain is a result of an infection of the tooth Pt has no evidence of acute impending airway compromise. At this point, patient will be discharged home on some antibiotics and pain trial, she will do well with an outpatient course of antibiotics. Follow up with the Dental Clinic as referred Vital signs are normal patient is in no acute distress. Pt had an effect uneventful ED stay Critical care attestation.: If time is entered above; I have spent that time in minutes in the direct care of this critically ill patient, excluding procedure time. ED Disposition Clinical Impression: Pain, dental, Dental caries Disposition: TO HOME OR SELFCARE Is pt being admited?: No Does the pt Need Aspirin: No Condition: Stable Instructions: Dental Abscess (ED), Toothache (ED) Additional Instructions: Make sure to follow up with the primary care physician as discussed. Take all your medications as you've been prescribed. If you have any worsening symptoms or develop new symptoms please return to ED immediately. Prescriptions: Ibuprofen [Motrin] 800 mg PO Q8HR #30 tablet Amoxicillin [Trimox CAP] 500 mg PO BID #20 capsule Referrals: PRIMARY CARE, [Primary Care Provider] - 3-5 Days [facility] [Outside] - 3[facility] Days [facility] [Outside[facility] - 3-5 Days [facility] [Outside] - 3-5 Days Forms: Work/School Release Form(ED) Time of Disposition: 21:40
[2019-10-24] MEDS ORDERED: IBUPROFEN 800 MG TAB PO ONE (21:51)
[2019-10-24 22:24] VITALS: BP 118/78
== END 2019-10-24 22:24 | disposition home or self-care (01) ==
LOC: ED 20:22
DX: R51 Headache (principal); K02.9 Dental caries, unspecified; K08.89 Other specified disorders of teeth and supporting structures; J45.909 Unspecified asthma, uncomplicated; Z98.890 Other specified postprocedural states; Z79.899 Other long term (current) drug therapy
CPT/HCPCS: 99282

== ENCOUNTER 2019-11-25 15:42 | Emergency (ER) | payer MEDICAID ==
[2019-11-25 15:51] VITALS: BP 135/89
[2019-11-25] MEDS ORDERED: KETOROLAC 30 MG/1 ML INJ IM ONE (18:27)
--- NOTE | 2019-11-25 18:31 | Emergency Department Report ---
ED Lower Extremity HPI - General Chief Complaint: Extremity Injury, Lower Stated Complaint: (R) LEG PAIN Time Seen by Provider: 11/25/19 18:26 Source: patient Mode of arrival: Ambulatory Limitations: No Limitations - History of Present Illness Initial Comments: 19-year-old female presents to the ER today complaining of right hip/pelvis pain. Patient states that the pain initially started after she closed the prepress proofer door using her right hip/pelvis. She states that the pain had subsided and she was able to go to work, but was at work she used the same maneuver to close a drawer and after doing that the pain became significantly worse. She states that the pain is worse with ambulation and rotation of her hip out words. She did not try taking anything for pain. Patient states that she was concerned that the pain was due to a surgery that she had several years ago when she was a child. She states that she had to have cardiac surgery and he took a vein out of her left groin area to do the surgery. She is also concerned for possible clot. Patient has not had any leg swelling, no leg discoloration, no calf pain and she has not had any clots in the past. She currently has no risk factors for clots. She reports no chest pain, shortness of breath, abdominal pain or UTI symptoms. MD Complaint: hip injury -: Sudden, This morning Injury: Hip: Right, Pelvis: Right Type of Injury: other (Pt reports that twice this morning she used her right hip/pelvis to close first the prepress proofer door and then while at work, the drawer) - Related Data Home Medications Medication Instructions Recorded Confirmed Last Taken Ferrous Sulfate 1 tab PO DAILY 12/15/13 12/15/13 Unknown Previous Rx's Medication Instructions Recorded Last Taken Type Amoxicillin/K Clav Tab [Augmentin 1 tab PO BID #14 tablet 10/14/14 Unknown Rx 875MG] traMADoL [Ultram] 50 mg PO Q6HR PRN #14 tablet 10/14/14 Unknown Rx Amoxicillin 500 mg PO BID #20 capsule 07/14/17 Unknown Rx Omeprazole Magnesium [PriLOSEC Otc] 20 mg PO QDAY #14 tablet. 07/18/17 Unknown Rx traMADoL [Ultram 50 MG tab] 50 mg PO Q6HR PRN #15 tablet 07/18/17 Unknown Rx Albuterol INH(or & Nicu Only) 2 puff IH QID PRN #1 inhalation 03/15/18 Unknown Rx [ProAir HFA Inhaler] Azithromycin 250 mg PO DAILY #6 tablet 03/15/18 Unknown Rx Benzonatate [Tessalon Perle] 100 mg PO TID PRN #30 capsule 03/15/18 Unknown Rx Ibuprofen [Ibuprofen 800] 800 mg PO TID PRN #30 tablet 03/15/18 Unknown Rx predniSONE [Deltasone] 40 mg PO QDAY 5 Days #10 tab 03/15/18 Unknown Rx Chlorhexidine Mouthwash [Peridex] 15 ml MM BID #473 bottle 10/30/18 Unknown Rx Fluconazole (Nf) [Diflucan TAB] 150 mg PO ONCE #1 tablet 11/09/18 Unknown Rx metroNIDAZOLE [Flagyl] 500 mg PO Q12HR #20 tab 11/09/18 Unknown Rx metroNIDAZOLE [Flagyl] 500 mg PO BID 7 Days #14 tab 03/05/19 Unknown Rx Amoxicillin [Trimox CAP] 500 mg PO BID #20 capsule 10/24/19 Unknown Rx Ibuprofen [Motrin] 800 mg PO Q8HR #30 tablet 10/24/19 Unknown Rx Ibuprofen [Motrin 600 MG tab] 600 mg PO Q8H PRN #30 tablet 11/25/19 Unknown Rx Allergies Allergy/AdvReac Type Severity Reaction Status Date / Time No Known Allergies Allergy Verified 07/13/17 21:56 ED Review of Systems ROS: Stated complaint: (R) LEG PAIN Other details as noted in HPI Comment: All other systems reviewed and negative Constitutional: denies: chills, fever Respiratory: denies: cough, shortness of breath, wheezing Cardiovascular: denies: chest pain, palpitations Musculoskeletal: arthralgia ED Past Medical Hx - Past Medical History Hx Hypertension: No Hx Congestive Heart Failure: No Hx Diabetes: No Hx Deep Vein Thrombosis: No Hx Renal Disease: No Hx Sickle Cell Disease: No Hx Seizures: No Hx Asthma: Yes (last attack- 2012) Hx COPD: No Additional medical history: Irregular heart rate as a child - Surgical History Additional Surgical History: "heart sx at 4/5 yrs old" - Social History Smoking Status: Never Smoker Substance Use Type: None - Medications Home Medications: Home Medications Medication Instructions Recorded Confirmed Last Taken Type Ferrous Sulfate 1 tab PO DAILY 12/15/13 12/15/13 Unknown History Amoxicillin/K Clav Tab [Augmentin 1 tab PO BID #14 tablet 10/14/14 Unknown Rx 875MG] traMADoL [Ultram] 50 mg PO Q6HR PRN #14 tablet 10/14/14 Unknown Rx Amoxicillin 500 mg PO BID #20 capsule 07/14/17 Unknown Rx Omeprazole Magnesium [PriLOSEC Otc] 20 mg PO QDAY #14 tablet.dr 07/18/17 Unknown Rx traMADoL [Ultram 50 MG tab] 50 mg PO Q6HR PRN #15 tablet 07/18/17 Unknown Rx Albuterol INH(or & Nicu Only) 2 puff IH QID PRN #1 inhalation 03/15/18 Unknown Rx [ProAir HFA Inhaler] Azithromycin 250 mg PO DAILY #6 tablet 03/15/18 Unknown Rx Benzonatate [Tessalon Perle] 100 mg PO TID PRN #30 capsule 03/15/18 Unknown Rx Ibuprofen [Ibuprofen 800] 800 mg PO TID PRN #30 tablet 03/15/18 Unknown Rx predniSONE [Deltasone] 40 mg PO QDAY 5 Days #10 tab 03/15/18 Unknown Rx Chlorhexidine Mouthwash [Peridex] 15 ml MM BID #473 bottle 10/30/18 Unknown Rx Fluconazole (Nf) [Diflucan TAB] 150 mg PO ONCE #1 tablet 11/09/18 Unknown Rx metroNIDAZOLE [Flagyl] 500 mg PO Q12HR #20 tab 11/09/18 Unknown Rx metroNIDAZOLE [Flagyl] 500 mg PO BID 7 Days #14 tab 03/05/19 Unknown Rx Amoxicillin [Trimox CAP] 500 mg PO BID #20 capsule 10/24/19 Unknown Rx Ibuprofen [Motrin] 800 mg PO Q8HR #30 tablet 10/24/19 Unknown Rx Ibuprofen [Motrin 600 MG tab] 600 mg PO Q8H PRN #30 tablet 11/25/19 Unknown Rx ED Physical Exam - General Limitations: No Limitations General appearance: alert, in no apparent distress - Head Head exam: Present: atraumatic, normocephalic - Eye Eye exam: Present: normal appearance - Respiratory Respiratory exam: Absent: respiratory distress - Cardiovascular Cardiovascular Exam: Present: regular rate - GI/Abdominal GI/Abdominal exam: Absent: soft, distended, tenderness - Extremities Exam Extremities exam: Present: other (Patient has moderate tenderness to palpation over the anterior superior iliac spine on the right. She does not have any tenderness to palpation about the hip. She has increased pain to the pelvis, referred rotation of her leg outwards. She has no swelling noted along her right leg, no calf tenderness, no thigh tenderness, no ecchymosis, no erythema, no acute deformity; neurovascular intact right leg.) ED Course Vital Signs 11/25/19 15:47 Temperature 99.0 F Pulse Rate 89 Respiratory 20 Rate Blood Pressure 135/89 O2 Sat by Pulse 99 Oximetry Critical care attestation.: If time is entered above; I have spent that time in minutes in the direct care of this critically ill patient, excluding procedure time. ED Disposition Clinical Impression: Pelvic contusion Disposition: - TO HOME OR SELFCARE Is pt being admited?: No Does the pt Need Aspirin: No Condition: Stable Instructions: Contusion in Adults (ED) Additional Instructions: Take medication as prescribed. Rest and apply ice pelvic area to help with pain. I recommend f/u with PCP if pain continues but if anything worsens return to ED. Prescriptions: Ibuprofen [Motrin 600 MG tab] 600 mg PO Q8H PRN #30 tablet PRN Reason: Pain Referrals: PRIMARY CARE, [Primary Care Provider] - 3-5 Days Forms: Work/School Release Form(ED) Time of Disposition: 18:31
== END 2019-11-25 18:41 | disposition home or self-care (01) ==
LOC: ED 15:42
DX: M79.81 Nontraumatic hematoma of soft tissue (principal); Z79.1 Long term (current) use of non-steroidal anti-inflammatories (NSAID); Z79.2 Long term (current) use of antibiotics; Z79.899 Other long term (current) drug therapy
CPT/HCPCS: 96372; 99282; J1885

== ENCOUNTER 2019-12-03 15:52 | Emergency (ER) | payer MEDICAID ==
[2019-12-03 16:04] VITALS: BP 113/60
--- NOTE | 2019-12-03 16:22 | Emergency Department Report ---
Chief Complaint: Extremity Injury, Lower Stated Complaint: PELVIC/LEG PAIN - HPI History of Present Illness: 19-year-old -[place] female presents to the emergency room for a work excuse to return back to work. Patient was seen here on 25 November 2019 for pelvic contusion. - Exam Vital Signs: Vital Signs 12/03/19 16:01 Temperature 98.5 F Pulse Rate 69 Respiratory 16 Rate Blood Pressure 113/60 O2 Sat by Pulse 96 Oximetry Physical Exam: Gen: alert oriented NAD nontoxic in appearance Ambulatory without difficulties MSE screening note: Focused history and physical exam performed. Due to findings the following was ordered: 19-year-old -[place] female presents to the emergency room for a work excuse to return back to work. Patient was seen here on 25 November 2019 for pelvic contusion. Patient is given a referral to Dr. Roxanne De La O or [facility] for work excuse. ED Disposition for MSE Disposition: Z-07 MED SCREENING EXAM-LEFT Is pt being admited?: No Does the pt Need Aspirin: No Condition: Stable Additional Instructions: Please follow up a Primary Care provider. Referrals: KATLYN VILLAFANA MD [Staff Physician] - 3-5 Days [facility] [Provider Group] - 3-5 Days Forms: Work/School Release Form(ED)
== END 2019-12-03 16:21 | disposition left against medical advice (07) ==
LOC: ED 15:52
DX: Z02.79 Encounter for issue of other medical certificate (principal); Z53.21 Procedure and treatment not carried out due to patient leaving prior to being seen by health care provider